=== PATIENT | female | born 1995 | race Caucasian/White ===

== ENCOUNTER 2019-02-20 23:46 | Emergency (ER) | payer OTHER ==
[~2019-02-20] VITALS: Ht 170.2 cm; Wt 49.9 kg
[2019-02-21] MEDS ORDERED: ATIVAN1 M1 PO (01:19)
[2019-02-21 01:30] VITALS: BP 103/48
[2019-02-21] MEDS ORDERED: ZOFRAN ODT4 MG PO (12:36)
== END 2019-02-21 02:13 | disposition home or self-care (01) ==
LOC: M.ERS 23:46
DX: F11.23 Opioid dependence with withdrawal (principal); R11.2 Nausea with vomiting, unspecified; R56.9 Unspecified convulsions

== ENCOUNTER 2019-02-21 10:39 | Emergency (ER) | payer OTHER ==
[~2019-02-21] VITALS: Ht 170.2 cm; Wt 49.9 kg
[~2019-02-21 10:39] MED LIST: ATIVAN1 M1 PO
[2019-02-21 11:06] LABS: ABSOLUTE BASOPHILS 0.1 thou/uL (0.0-0.2); ABSOLUTE LYMPHOCYTES 2.1 thou/uL (0.8-5.3); ABSOLUTE MONOCYTES 0.5 thou/uL (0.0-1.2); ABSOLUTE NEUTROPHILS 8.4 thou/uL (1.6-8.1); BASOPHILS 0.6 %; HEMATOCRIT 36.4 % (37.0-47.0); HEMOGLOBIN 11.8 gm/dL (12.0-15.0); LYMPHOCYTES 18.6 %; MCH 20.3 pg (26.0-34.0); MCHC 32.5 g/dL (28.0-37.0); MCV 62.7 fL (80.0-100.0); MONOCYTES 4.2 %; MPV 7.9 fl. (7.2-11.1); NUCLEATED RBCS 0 /100WBC; PLATELET COUNT* 353 thou/uL (150-400); POLYS 76.6 %; RDW-CV 15.6 % (10.5-14.5)
[2019-02-21 11:07] LABS: URINE BLOOD NEGATIVE (Negative); URINE CLARITY CLEAR; URINE COLOR YELLOW; URINE GLUCOSE-RANDOM NEGATIVE (Negative); URINE KETONES 1+ (Negative); URINE LEUKOCYTES-REFLEX NEGATIVE (Negative); URINE NITRITE-REFLEX NEGATIVE (Negative); URINE PROTEIN NEGATIVE (Negative); URINE SPECIFIC GRAVITY 1.025 (1.005-1.030); URINE UROBILINOGEN 0.2 E.U./dl (0.2-1.0)
[2019-02-21 11:11] LABS: URINE BILIRUBIN 1+ (Negative)
[2019-02-21 11:12] LABS: CALCIUM 9.4 mg/dL (8.5-10.1); CREATININE 0.9 mg/dL (0.6-1.3); POTASSIUM 3.7 mmol/L (3.5-5.1)
[2019-02-21 11:13] LABS: AMP/METHAMP Negative (Negative); BARBITURATES Negative (Negative); BENZODIAZEPINES Negative (Negative); COCAINE POSITIVE (Negative); ICTOTEST (BILI CONFIRMATORY) Negative (Negative); METHADONE Negative (Negative); OPIATES POSITIVE (Negative); PCP Negative (Negative); THC POSITIVE (Negative)
[2019-02-21 11:17] LABS: ALBUMIN 3.7 g/dL (3.4-5.0); TOTAL BILIRUBIN 0.4 mg/dL (<0.1-1.0); TOTAL PROTEIN 7.8 g/dL (6.4-8.2)
[2019-02-21 11:44] LABS: PLATELET ESTIMATE ADEQUATE
[2019-02-21 11:45] LABS: ANISOCYTOSIS 2+; HYPOCHROMASIA 2+; MICROCYTES 2+; OVALOCYTES 2+; POIKILOCYTOSIS 2+; SALICYLATE < 2.8 mg/dL (2.8-20.0); SCHISTOCYTES Occasional
[2019-02-21 11:47] LABS: ACETAMINOPHEN < 2 ug/mL (10-30)
[2019-02-21] MEDS ORDERED: ZOFRAN ODT4 MG PO (12:36)
[2019-02-21 13:20] VITALS: BP 90/40
== END 2019-02-21 13:22 ==
LOC: M.ERS 10:39
PROVIDERS: Personal Emergency Response Attendant
DX: F11.23 Opioid dependence with withdrawal (principal); R11.2 Nausea with vomiting, unspecified; M41.9 Scoliosis, unspecified